=== PATIENT | female | born 1955 | race Caucasian/White ===

== ENCOUNTER 2017-11-14 10:20 | Emergency (ER) | payer OTHER ==
[~2017-11-14] VITALS: Ht 144.8 cm; Wt 54.4 kg
== END 2017-11-14 11:55 | disposition home or self-care (01) ==
LOC: ER 10:20
DX: L27.1 Localized skin eruption due to drugs and medicaments taken internally (principal); T50.995A Adverse effect of other drugs, medicaments and biological substances, initial encounter

== ENCOUNTER 2023-06-12 08:24 | Emergency (ER) | payer OTHER ==
[~2023-06-12] VITALS: Ht 152.4 cm; Wt 50.8 kg
[~2023-06-12 08:24] MED LIST: DICLOFENAC SODI75 MG PO; LISINOPRIL10 MG PO; SIMVASTATIN20 MG PO
[2023-06-12] MEDS ORDERED: METHYLPREDNISOLONE SOD SUCC 125 MG VIAL IV ONE (09:00)
[2023-06-12] MEDS ORDERED: DIPHENHYDRAMINE HCL 25 MG CAPSULE PO ONE (09:00)
[2023-06-12 09:30] LABS: HEMATOCRIT 42.4 % (36.0-45.00); HEMOGLOBIN 14.5 g/dL (12.0-15.00); MEAN CELL VOLUME 90.7 fL (80.00-100.00); MEAN CORPUSCULAR HEMOGLOBIN 31.1 pg (27.00-32.0); MEAN CORPUSCULAR HGB CONC 34.3 g/dl (32.0-36.0); PLATELET COUNT 227 K/uL (150-450); RED BLOOD COUNT 4.67 M/uL (4.00-6.00); RED CELL DISTRIBUTION WIDTH 13.2 % (11.5-14.5)
== END 2023-06-12 10:24 | disposition home or self-care (01) ==
LOC: ER 08:24
PROVIDERS: Emergency Medicine
DX: R21 Rash and other nonspecific skin eruption (principal); E78.00 Pure hypercholesterolemia, unspecified; I10 Essential (primary) hypertension

== ENCOUNTER 2025-01-30 15:24 | Emergency (ER) | payer OTHER ==
[~2025-01-30] VITALS: Ht 142.2 cm; Wt 51.3 kg
[2025-01-30] MEDS ORDERED: HYDROXYZINE HCL25 MG PO (16:29)
[2025-01-30] MEDS ORDERED: ARTIFICIAL TEAR1511 OP (16:29)
== END 2025-01-30 17:12 | disposition home or self-care (01) ==
LOC: ER 15:25
DX: F41.8 Other specified anxiety disorders (principal); E78.00 Pure hypercholesterolemia, unspecified; I10 Essential (primary) hypertension; H02.59 Other disorders affecting eyelid function